=== PATIENT | male | born 1990 | race African-American/Black ===

== ENCOUNTER 2019-06-13 23:28 | Emergency (ER) | payer MEDICAID ==
[~2019-06-13] VITALS: Ht 175.3 cm; Wt 62.3 kg
[2019-06-13 23:46] VITALS: BP 116/69
== END 2019-06-14 03:18 | disposition home or self-care (01) ==
LOC: ER 23:28
DX: R20.2 Paresthesia of skin (principal); F17.200 Nicotine dependence, unspecified, uncomplicated
CPT/HCPCS: 99281